=== PATIENT | female | born 1945 | race Caucasian/White ===

== ENCOUNTER 2018-10-14 07:57 | Emergency (ER) | payer MEDICARE, OTHER ==
[~2018-10-14] VITALS: Ht 170.2 cm; Wt 73.9 kg
[2018-10-14 09:27] LABS: BASOPHILS # (AUTO) 0.01 x10^3/uL (0-0.1); BASOPHILS % (AUTO) 0 % (0-1); EOSINOPHILS # (AUTO) 0.04 x10^3/uL (0-0.4); EOSINOPHILS % (AUTO) 1 % (1-7); LYMPHOCYTES # (AUTO) 0.83 x10^3/uL (1-3.4); LYMPHOCYTES % (AUTO) 10 % (22-44); MD NO; MEAN CORPUSCULAR HEMOGLOBIN 30.8 pg (27.0-34.8); MEAN CORPUSCULAR HGB CONC 32.6 g/dL (32.4-35.8); MEAN CORPUSCULAR VOLUME 94.4 fL (80-100); MEAN PLATELET VOLUME 7.8 fL (7.4-10.4); MONOCYTES # (AUTO) 0.67 x10^3/uL (0.2-0.8); MONOCYTES % (AUTO) 8 % (2-9); NEUTROPHILS # (AUTO) 6.41 x10^3/uL (1.8-6.8); NEUTROPHILS % (AUTO) 81 % (42-75); PLATELET COUNT 276 x10^3/uL (130-400); RED BLOOD COUNT 4.47 x10^6/uL (3.82-5.3); RED CELL DISTRIBUTION WIDTH 13.3 % (9.6-15.2)
[2018-10-14 09:48] LABS: ALBUMIN 3.8 g/dL (3.4-5.0); ANION GAP 6 mmol/L (5-15); CALCIUM 9.3 mg/dL (8.5-10.1); CHLORIDE 107 mmol/L (98-107); CREATININE 1.29 mg/dL (0.55-1.02)
[2018-10-14 09:51] LABS: TROPONIN I < 0.015 ng/mL (0.000-0.045)
[2018-10-14 10:46] LABS: MICROSCOPIC AUTO
[2018-10-14 10:47] LABS: CULTURE INDICATED? YES
--- NOTE | 2018-10-14 11:33 | NUR ---
PT UP TO BEDSIDE COMMODE WITH STANDBY ASSISTANCE, NO BALANCE ASSISTANCE REQUIRED. DENIES ANY NEEDS OR CONCERNS AT THIS TIME.
[2018-10-14 11:39] VITALS: BP 129/76
== END 2018-10-14 12:06 | disposition home or self-care (01) ==
LOC: ED 11:57
DX: S80.01XA Contusion of right knee, initial encounter (principal); N30.00 Acute cystitis without hematuria; I10 Essential (primary) hypertension; Z87.891 Personal history of nicotine dependence; W01.0XXA Fall on same level from slipping, tripping and stumbling without subsequent striking against object, initial encounter; Y93.89 Activity, other specified; Y92.410 Unspecified street and highway as the place of occurrence of the external cause; Y99.8 Other external cause status
CPT/HCPCS: 36415; 71045; 80048; 81001; 82040; 84484; 85025; 87077; 87086; 87186; 93005; 99284

== ENCOUNTER 2019-05-15 19:10 | Inpatient (IN) | payer MEDICARE ==
[~2019-05-15] VITALS: Ht 167.6 cm; Wt 67.5 kg
--- NOTE | 2019-05-15 19:30 | NUR ---
PT UNDRESSED, PLACED IN GOWN. SOCKS SOILED, OTHERWISE CLOTHES REASONABLY CLEAN BUT SMELLING OF SMOKE. PT CALM, COOPERATIVE WITH CARE. A/O X 4, ONLY FALTERS ON DATE STATING IT IS 02/2020. PT DENIES ANY MEDICAL COMPLAINTS. BELONGINGS PLACED IN TWO BAGS AND TO LOCKER. PT DENIES SI/HI, DOES NOT PRESENT ELOPEMENT RISK. WARM BLANKETS PROVIDED, CALL LIGHT WITHIN REACH.
[2019-05-15 19:47] LABS: BASOPHILS # (AUTO) 0.03 x10^3/uL (0-0.1); BASOPHILS % (AUTO) 1 % (0-1); EOSINOPHILS % (AUTO) 2 % (1-7); LYMPHOCYTES # (AUTO) 1.93 x10^3/uL (1-3.4); LYMPHOCYTES % (AUTO) 29 % (22-44); MD NO; MEAN CORPUSCULAR HEMOGLOBIN 31.5 pg (27.0-34.8); MEAN CORPUSCULAR HGB CONC 32.9 g/dL (32.4-35.8); MEAN CORPUSCULAR VOLUME 95.6 fL (80-100); MEAN PLATELET VOLUME 7.6 fL (7.4-10.4); MONOCYTES # (AUTO) 0.76 x10^3/uL (0.2-0.8); MONOCYTES % (AUTO) 11 % (2-9); NEUTROPHILS # (AUTO) 3.89 x10^3/uL (1.8-6.8); NEUTROPHILS % (AUTO) 58 % (42-75); PLATELET COUNT 428 x10^3/uL (130-400); RED BLOOD COUNT 3.86 x10^6/uL (3.82-5.3); RED CELL DISTRIBUTION WIDTH 13.6 % (9.6-15.2)
[2019-05-15 19:58] LABS: ALANINE AMINOTRANSFERASE 17 U/L (12-78); ALBUMIN 2.9 g/dL (3.4-5.0); ANION GAP 6 mmol/L (5-15); CALCIUM 9.2 mg/dL (8.5-10.1); CHLORIDE 112 mmol/L (98-107); CREATININE 1.06 mg/dL (0.55-1.02)
[2019-05-15 20:08] LABS: ALKALINE PHOSPHATASE 78 U/L (45-117); BILIRUBIN,TOTAL 0.2 mg/dL (0.2-1.0); TOTAL PROTEIN 6.3 g/dL (6.4-8.2)
--- NOTE | 2019-05-15 20:15 | NUR ---
PT ASSISTED UP TO BSC. URINE COLLECTED/SENT TO LAB.
[2019-05-15] MEDS ORDERED: ALBU18HF INH (20:34)
[2019-05-15] MEDS ORDERED: AMLO10TA8 PO (20:34)
[2019-05-15] MEDS ORDERED: LISI40TA PO (20:34)
[2019-05-15] MEDS ORDERED: ATOR40TA PO (20:34)
--- NOTE | 2019-05-15 20:36 | NUR ---
PT PROVIDED MEAL TRAY. MED REC COMPLETED. CALL LIGHT WITHIN REACH.
[2019-05-15 20:37] LABS: MICROSCOPIC AUTO
[2019-05-15 20:57] LABS: CULTURE INDICATED? YES
[2019-05-15 21:39] VITALS: BP 159/70
[2019-05-15] MEDS ORDERED: SODIUM CHLORIDE 0.9% 1,000 ML IV SCH (22:32)
[2019-05-15] MEDS ORDERED: hydrALAzine 20 MG/ML, 1ML IVPush PRN (23:00)
[2019-05-15] MEDS ORDERED: BISACODYL 10 MG SUPP PR PRN (23:00)
[2019-05-15] MEDS ORDERED: POLYETHYLENE GLYCOL 17 GM PACKET PO PRN (23:00)
[2019-05-15] MEDS ORDERED: ONDANSETRON ODT 4 MG PO PRN (23:00)
[2019-05-15] MEDS ORDERED: DOCUSATE 100 MG CAPSULE PO PRN (23:00)
[2019-05-15] MEDS: HEPARIN 5,000 UNITS/ML, 1ML SQ SCH (23:00)
[2019-05-15] MEDS ORDERED: ONDANSETRON 2MG/ML, 2ML IVPush PRN (23:00)
[2019-05-15] MEDS ORDERED: ACETAMINOPHEN 325 MG TABLET PO PRN (23:00)
[2019-05-15] MEDS ORDERED: PROMETHAZINE 25 MG/ML, 1ML IM PRN (23:00)
[2019-05-15] MEDS: CEFTRIAXONE PMX 2GM/50ML 50 ML IV SCH (23:12)
[2019-05-15 23:17] LABS: FREE T4 (FREE THYROXINE) 0.99 ng/dL (0.76-1.46)
[2019-05-16 00:11] VITALS: BP 157/83
[2019-05-16 02:25] VITALS: BP 159/70
[2019-05-16 06:41] LABS: BASOPHILS # (AUTO) 0.04 x10^3/uL (0-0.1); BASOPHILS % (AUTO) 1 % (0-1); EOSINOPHILS # (AUTO) 0.14 x10^3/uL (0-0.4); EOSINOPHILS % (AUTO) 2 % (1-7); LYMPHOCYTES # (AUTO) 1.94 x10^3/uL (1-3.4); LYMPHOCYTES % (AUTO) 28 % (22-44); MD NO; MEAN CORPUSCULAR HEMOGLOBIN 31.7 pg (27.0-34.8); MEAN CORPUSCULAR HGB CONC 33.1 g/dL (32.4-35.8); MEAN CORPUSCULAR VOLUME 95.7 fL (80-100); MEAN PLATELET VOLUME 7.7 fL (7.4-10.4); MONOCYTES # (AUTO) 0.75 x10^3/uL (0.2-0.8); MONOCYTES % (AUTO) 11 % (2-9); NEUTROPHILS # (AUTO) 4.18 x10^3/uL (1.8-6.8); NEUTROPHILS % (AUTO) 59 % (42-75); PLATELET COUNT 385 x10^3/uL (130-400); RED BLOOD COUNT 3.58 x10^6/uL (3.82-5.3); RED CELL DISTRIBUTION WIDTH 13.6 % (9.6-15.2)
[2019-05-16 06:55] LABS: ALBUMIN 2.5 g/dL (3.4-5.0); ANION GAP 5 mmol/L (5-15); CALCIUM 8.5 mg/dL (8.5-10.1); CHLORIDE 114 mmol/L (98-107)
[2019-05-16 06:58] LABS: ALANINE AMINOTRANSFERASE 18 U/L (12-78); ALKALINE PHOSPHATASE 60 U/L (45-117); BILIRUBIN,TOTAL 0.3 mg/dL (0.2-1.0); CHOL/HDL RATIO 2.3; CHOLESTEROL, TOTAL 134 mg/dL (140-239); CREATININE 1.04 mg/dL (0.55-1.02); HDL CHOL % 43 % (28-40); HDL CHOLESTEROL (DIRECT) 58 mg/dL (40-60); LDL CHOLESTEROL,CALCULATED 58 mg/dL (54-169); TOTAL PROTEIN 5.8 g/dL (6.4-8.2); TRIGLYCERIDES 88 mg/dL (50-200); VLDL CHOLESTEROL 18 mg/dL (0-25)
[2019-05-16] MEDS: HEPARIN 5,000 UNITS/ML, 1ML SQ SCH ×3 (07:00→22:56)
[2019-05-16 07:39] VITALS: BP 158/82
[2019-05-16 13:43] VITALS: BP 148/72
[2019-05-16 14:31] LABS: AMPHETAMINE SCREEN, URINE Negative (Negative); BARBITURATE SCREEN, URINE Negative (Negative); BENZODIAZEPINE SCREEN, URINE Negative (Negative); CANNABINOID SCREEN, URINE Negative (Negative); COCAINE SCREEN, URINE Negative (Negative); METHADONE SCREEN, URINE Negative (Negative); OPIATE SCREEN, URINE Negative (Negative)
[2019-05-16 18:52] VITALS: BP 149/78
[2019-05-16] MEDS: ATORVASTATIN 40 MG TABLET PO SCH (21:26)
[2019-05-16] MEDS: CEFTRIAXONE PMX 2GM/50ML 50 ML IV SCH (22:56)
[2019-05-17 00:06] VITALS: BP 150/82
[2019-05-17 05:05] LABS: ANION GAP 7 mmol/L (5-15); CALCIUM 8.4 mg/dL (8.5-10.1); CHLORIDE 112 mmol/L (98-107); CREATININE 1.05 mg/dL (0.55-1.02)
[2019-05-17] MEDS: HEPARIN 5,000 UNITS/ML, 1ML SQ SCH ×4 (05:06→22:24)
[2019-05-17 05:07] LABS: BASOPHILS # (AUTO) 0.04 x10^3/uL (0-0.1); BASOPHILS % (AUTO) 1 % (0-1); EOSINOPHILS # (AUTO) 0.26 x10^3/uL (0-0.4); EOSINOPHILS % (AUTO) 4 % (1-7); LYMPHOCYTES # (AUTO) 1.84 x10^3/uL (1-3.4); LYMPHOCYTES % (AUTO) 28 % (22-44); MD NO; MEAN CORPUSCULAR HEMOGLOBIN 31.6 pg (27.0-34.8); MEAN CORPUSCULAR HGB CONC 32.9 g/dL (32.4-35.8); MEAN CORPUSCULAR VOLUME 95.9 fL (80-100); MEAN PLATELET VOLUME 7.8 fL (7.4-10.4); MONOCYTES # (AUTO) 0.78 x10^3/uL (0.2-0.8); MONOCYTES % (AUTO) 12 % (2-9); NEUTROPHILS # (AUTO) 3.77 x10^3/uL (1.8-6.8); NEUTROPHILS % (AUTO) 56 % (42-75); PLATELET COUNT 374 x10^3/uL (130-400); RED BLOOD COUNT 3.66 x10^6/uL (3.82-5.3); RED CELL DISTRIBUTION WIDTH 13.4 % (9.6-15.2)
[2019-05-17] MEDS: AMLODIPINE 10 MG TAB PO SCH (07:43)
[2019-05-17 07:52] VITALS: BP 157/90
[2019-05-17] MEDS: LISINOPRIL 20 MG TABLET PO SCH (11:01)
[2019-05-17 12:51] VITALS: BP 159/90
[2019-05-17] MEDS: ATORVASTATIN 40 MG TABLET PO SCH (20:05)
[2019-05-17 20:24] VITALS: BP 154/82
[2019-05-17] MEDS: CEFTRIAXONE PMX 2GM/50ML 50 ML IV SCH (22:25)
[2019-05-18 00:54] VITALS: BP 133/78
[2019-05-18] MEDS: HEPARIN 5,000 UNITS/ML, 1ML SQ SCH ×3 (06:30→23:00)
[2019-05-18 07:54] VITALS: BP 138/87
[2019-05-18] MEDS: AMLODIPINE 10 MG TAB PO SCH (08:05)
[2019-05-18] MEDS: LISINOPRIL 20 MG TABLET PO SCH (08:05)
[2019-05-18 14:02] VITALS: BP 130/80
[2019-05-18 19:46] VITALS: BP 132/75
[2019-05-18] MEDS: ATORVASTATIN 40 MG TABLET PO SCH (20:53)
[2019-05-18] MEDS: CEFTRIAXONE PMX 2GM/50ML 50 ML IV SCH (23:00)
[2019-05-19 00:27] VITALS: BP 135/63
[2019-05-19 07:13] VITALS: BP 138/81
[2019-05-19] MEDS: HEPARIN 5,000 UNITS/ML, 1ML SQ SCH ×3 (08:36→22:40)
[2019-05-19] MEDS: AMLODIPINE 10 MG TAB PO SCH (08:36)
[2019-05-19] MEDS: LISINOPRIL 20 MG TABLET PO SCH (08:37)
[2019-05-19 13:17] VITALS: BP 131/77
[2019-05-19] MEDS: ATORVASTATIN 40 MG TABLET PO SCH (20:22)
[2019-05-19] MEDS: CEFTRIAXONE PMX 2GM/50ML 50 ML IV SCH ×2 (22:39→23:25)
[2019-05-20 01:26] VITALS: BP 148/79
[2019-05-20 06:59] VITALS: BP 144/81
[2019-05-20] MEDS: AMLODIPINE 10 MG TAB PO SCH (07:50)
[2019-05-20] MEDS: HEPARIN 5,000 UNITS/ML, 1ML SQ SCH ×3 (07:51→23:27)
[2019-05-20] MEDS: LISINOPRIL 20 MG TABLET PO SCH (07:51)
[2019-05-20 12:57] VITALS: BP 145/78
[2019-05-20] MEDS: ATORVASTATIN 40 MG TABLET PO SCH (19:58)
[2019-05-20 20:17] VITALS: BP 142/84
[2019-05-21 00:13] VITALS: BP 114/72
[2019-05-21 07:12] VITALS: BP 130/77
[2019-05-21] MEDS: HEPARIN 5,000 UNITS/ML, 1ML SQ SCH ×2 (10:22→17:00)
[2019-05-21] MEDS: AMLODIPINE 10 MG TAB PO SCH (10:22)
[2019-05-21] MEDS: LISINOPRIL 20 MG TABLET PO SCH (10:22)
[2019-05-21 14:30] VITALS: BP 127/86
[2019-05-21 19:19] VITALS: BP 127/80
[2019-05-21] MEDS: ATORVASTATIN 40 MG TABLET PO SCH (19:52)
[2019-05-22] MEDS: HEPARIN 5,000 UNITS/ML, 1ML SQ SCH ×3 (01:00→16:27)
[2019-05-22 01:04] VITALS: BP 127/80
[2019-05-22] MEDS: LISINOPRIL 20 MG TABLET PO SCH (08:30)
[2019-05-22] MEDS: AMLODIPINE 10 MG TAB PO SCH (08:30)
[2019-05-22 09:55] VITALS: BP 106/69
[2019-05-22 15:51] VITALS: BP 109/73
[2019-05-22 18:45] VITALS: BP 111/70
[2019-05-22] MEDS: ATORVASTATIN 40 MG TABLET PO SCH (20:16)
[2019-05-23] MEDS: HEPARIN 5,000 UNITS/ML, 1ML SQ SCH ×3 (01:00→17:21)
[2019-05-23 01:32] VITALS: BP 121/74
[2019-05-23 07:24] VITALS: BP 126/74
[2019-05-23] MEDS: AMLODIPINE 10 MG TAB PO SCH (09:50)
[2019-05-23] MEDS: LISINOPRIL 20 MG TABLET PO SCH (09:51)
[2019-05-23 12:20] VITALS: BP 116/74
[2019-05-23 18:28] VITALS: BP 109/68
[2019-05-23] MEDS: ATORVASTATIN 40 MG TABLET PO SCH (20:03)
[2019-05-23 20:21] VITALS: BP 113/73
[2019-05-24 00:28] VITALS: BP 121/77
[2019-05-24] MEDS: HEPARIN 5,000 UNITS/ML, 1ML SQ SCH ×3 (00:32→17:31)
[2019-05-24 07:07] VITALS: BP 109/72
[2019-05-24 08:58] VITALS: BP 121/74
[2019-05-24] MEDS: AMLODIPINE 10 MG TAB PO SCH (08:58)
[2019-05-24] MEDS: LISINOPRIL 20 MG TABLET PO SCH (08:58)
[2019-05-24 13:44] VITALS: BP 125/65
[2019-05-24 20:00] VITALS: BP 123/71
[2019-05-24] MEDS: ATORVASTATIN 40 MG TABLET PO SCH (20:56)
[2019-05-25] MEDS: HEPARIN 5,000 UNITS/ML, 1ML SQ SCH ×3 (01:00→17:00)
[2019-05-25 01:02] VITALS: BP 112/74
[2019-05-25 07:08] VITALS: BP 113/73
[2019-05-25] MEDS: AMLODIPINE 10 MG TAB PO SCH (07:30)
[2019-05-25] MEDS: LISINOPRIL 20 MG TABLET PO SCH (07:30)
[2019-05-25 15:23] VITALS: BP 117/72
[2019-05-25 19:49] VITALS: BP 110/71
[2019-05-25] MEDS: ATORVASTATIN 40 MG TABLET PO SCH (20:27)
[2019-05-26] MEDS: HEPARIN 5,000 UNITS/ML, 1ML SQ SCH ×3 (00:32→17:00)
[2019-05-26 01:55] VITALS: BP 107/68
[2019-05-26 07:12] VITALS: BP 120/74
[2019-05-26] MEDS: AMLODIPINE 10 MG TAB PO SCH (09:40)
[2019-05-26] MEDS: LISINOPRIL 20 MG TABLET PO SCH (09:41)
[2019-05-26 12:45] VITALS: BP 130/80
[2019-05-26 19:03] VITALS: BP 112/71
[2019-05-26] MEDS: ATORVASTATIN 40 MG TABLET PO SCH (20:14)
[2019-05-27] MEDS: HEPARIN 5,000 UNITS/ML, 1ML SQ SCH ×3 (00:35→15:42)
[2019-05-27 00:40] VITALS: BP 98/58
[2019-05-27 07:01] VITALS: BP 103/64
[2019-05-27] MEDS: AMLODIPINE 10 MG TAB PO SCH (08:32)
[2019-05-27] MEDS: LISINOPRIL 20 MG TABLET PO SCH (08:33)
[2019-05-27 14:16] VITALS: BP 107/69
[2019-05-27 19:00] VITALS: BP 125/73
[2019-05-27] MEDS: ATORVASTATIN 40 MG TABLET PO SCH (19:56)
[2019-05-28] MEDS: HEPARIN 5,000 UNITS/ML, 1ML SQ SCH ×3 (01:00→17:00)
[2019-05-28 03:53] VITALS: BP 118/74
[2019-05-28 07:49] VITALS: BP 115/73
[2019-05-28] MEDS: AMLODIPINE 10 MG TAB PO SCH (09:38)
[2019-05-28] MEDS: LISINOPRIL 20 MG TABLET PO SCH (09:39)
[2019-05-28 14:27] VITALS: BP 113/74
[2019-05-28 20:31] VITALS: BP 115/66
[2019-05-28] MEDS: ATORVASTATIN 40 MG TABLET PO SCH (22:11)
[2019-05-29] MEDS: HEPARIN 5,000 UNITS/ML, 1ML SQ SCH ×3 (01:46→17:39)
[2019-05-29 02:00] VITALS: BP 117/76
[2019-05-29 08:35] VITALS: BP 110/72
[2019-05-29] MEDS: LISINOPRIL 20 MG TABLET PO SCH (08:58)
[2019-05-29] MEDS: AMLODIPINE 10 MG TAB PO SCH (08:58)
[2019-05-29 12:49] VITALS: BP 122/80
[2019-05-29] MEDS: ATORVASTATIN 40 MG TABLET PO SCH (19:24)
[2019-05-29 20:55] VITALS: BP 116/75
[2019-05-30 00:11] VITALS: BP 112/73
[2019-05-30] MEDS: HEPARIN 5,000 UNITS/ML, 1ML SQ SCH ×3 (00:45→18:39)
[2019-05-30 06:46] VITALS: BP 114/73
[2019-05-30] MEDS: LISINOPRIL 20 MG TABLET PO SCH (10:50)
[2019-05-30] MEDS: AMLODIPINE 10 MG TAB PO SCH (10:51)
[2019-05-30 14:47] VITALS: BP 112/73
[2019-05-30 18:51] VITALS: BP 119/78
[2019-05-30] MEDS: ATORVASTATIN 40 MG TABLET PO SCH (20:14)
[2019-05-31 00:59] VITALS: BP 102/65
[2019-05-31] MEDS: HEPARIN 5,000 UNITS/ML, 1ML SQ SCH ×3 (01:00→17:36)
[2019-05-31 08:39] VITALS: BP 110/68
[2019-05-31] MEDS: AMLODIPINE 10 MG TAB PO SCH (10:45)
[2019-05-31] MEDS: LISINOPRIL 20 MG TABLET PO SCH (10:45)
[2019-05-31 14:04] VITALS: BP 114/73
[2019-05-31 20:00] VITALS: BP 135/80
[2019-05-31] MEDS: ATORVASTATIN 40 MG TABLET PO SCH (20:05)
[2019-06-01] MEDS: HEPARIN 5,000 UNITS/ML, 1ML SQ SCH ×2 (01:00→09:29)
[2019-06-01 01:54] VITALS: BP 118/75
[2019-06-01 07:30] VITALS: BP 105/70
[2019-06-01] MEDS: LISINOPRIL 20 MG TABLET PO SCH (09:29)
[2019-06-01] MEDS: AMLODIPINE 10 MG TAB PO SCH (09:29)
[2019-06-01] MEDS ORDERED: ENOXAPARIN 40 MG/0.4 ML SQ SCH (10:00)
[2019-06-01 14:20] VITALS: BP 106/69
[2019-06-01] MEDS: ENOXAPARIN 40 MG/0.4 ML SQ SCH (17:49)
[2019-06-01 19:00] VITALS: BP 113/71
[2019-06-01] MEDS: ATORVASTATIN 40 MG TABLET PO SCH (20:24)
[2019-06-02 00:17] VITALS: BP 111/70
[2019-06-02 07:15] VITALS: BP 119/75
[2019-06-02] MEDS: AMLODIPINE 10 MG TAB PO SCH (08:38)
[2019-06-02] MEDS: LISINOPRIL 20 MG TABLET PO SCH (08:38)
[2019-06-02 13:28] VITALS: BP 97/63
[2019-06-02] MEDS: ENOXAPARIN 40 MG/0.4 ML SQ SCH (18:00)
[2019-06-02 19:30] VITALS: BP 111/70
[2019-06-02] MEDS: ATORVASTATIN 40 MG TABLET PO SCH (21:07)
[2019-06-03 01:34] VITALS: BP 103/66
[2019-06-03 07:33] VITALS: BP 108/73
[2019-06-03] MEDS: AMLODIPINE 10 MG TAB PO SCH (08:03)
[2019-06-03] MEDS: LISINOPRIL 20 MG TABLET PO SCH (08:03)
[2019-06-03 13:13] VITALS: BP 95/63
[2019-06-03] MEDS: ENOXAPARIN 40 MG/0.4 ML SQ SCH (18:14)
[2019-06-03] MEDS: ATORVASTATIN 40 MG TABLET PO SCH (19:20)
[2019-06-03 20:23] VITALS: BP 93/60
[2019-06-04 00:46] VITALS: BP 108/70
[2019-06-04 08:39] VITALS: BP 101/68
[2019-06-04] MEDS: LISINOPRIL 20 MG TABLET PO SCH (09:04)
[2019-06-04 12:15] VITALS: BP 107/72
[2019-06-04 20:19] VITALS: BP 112/71
[2019-06-04] MEDS: ATORVASTATIN 40 MG TABLET PO SCH (21:24)
[2019-06-04] MEDS: ENOXAPARIN 40 MG/0.4 ML SQ SCH (21:25)
[2019-06-05 00:32] VITALS: BP 99/64
[2019-06-05 05:59] LABS: ANION GAP 5 mmol/L (5-15); CALCIUM 9.2 mg/dL (8.5-10.1); CHLORIDE 110 mmol/L (98-107); CREATININE 1.08 mg/dL (0.55-1.02)
[2019-06-05 06:01] LABS: BASOPHILS # (AUTO) 0.04 x10^3/uL (0-0.1); BASOPHILS % (AUTO) 1 % (0-1); EOSINOPHILS # (AUTO) 0.49 x10^3/uL (0-0.4); EOSINOPHILS % (AUTO) 8 % (1-7); LYMPHOCYTES # (AUTO) 1.95 x10^3/uL (1-3.4); LYMPHOCYTES % (AUTO) 31 % (22-44); MD NO; MEAN CORPUSCULAR HEMOGLOBIN 31.6 pg (27.0-34.8); MEAN CORPUSCULAR HGB CONC 32.7 g/dL (32.4-35.8); MEAN CORPUSCULAR VOLUME 96.6 fL (80-100); MEAN PLATELET VOLUME 8.4 fL (7.4-10.4); MONOCYTES # (AUTO) 0.71 x10^3/uL (0.2-0.8); MONOCYTES % (AUTO) 11 % (2-9); NEUTROPHILS # (AUTO) 3.08 x10^3/uL (1.8-6.8); NEUTROPHILS % (AUTO) 49 % (42-75); PLATELET COUNT 330 x10^3/uL (130-400); RED BLOOD COUNT 4.22 x10^6/uL (3.82-5.3); RED CELL DISTRIBUTION WIDTH 14.4 % (9.6-15.2)
[2019-06-05 08:12] VITALS: BP 112/78
[2019-06-05] MEDS: LISINOPRIL 20 MG TABLET PO SCH (09:00)
[2019-06-05 14:35] VITALS: BP 98/65
[2019-06-05 19:36] VITALS: BP 106/68
[2019-06-05] MEDS: ATORVASTATIN 40 MG TABLET PO SCH (21:06)
[2019-06-05] MEDS: ENOXAPARIN 40 MG/0.4 ML SQ SCH (21:06)
[2019-06-06 02:45] VITALS: BP 113/77
[2019-06-06 07:22] VITALS: BP 108/73
[2019-06-06] MEDS: LISINOPRIL 20 MG TABLET PO SCH (08:05)
[2019-06-06 12:07] VITALS: BP 107/74
[2019-06-06] MEDS: ATORVASTATIN 40 MG TABLET PO SCH (20:24)
[2019-06-06] MEDS: ENOXAPARIN 40 MG/0.4 ML SQ SCH (20:24)
[2019-06-06 21:00] VITALS: BP 130/79
[2019-06-07 02:00] VITALS: BP 106/66
[2019-06-07 06:55] VITALS: BP 112/71
[2019-06-07] MEDS: LISINOPRIL 20 MG TABLET PO SCH (09:22)
[2019-06-07 13:21] VITALS: BP 115/75
[2019-06-07 18:47] VITALS: BP 107/66
[2019-06-07] MEDS: ATORVASTATIN 40 MG TABLET PO SCH (20:11)
[2019-06-07] MEDS: ENOXAPARIN 40 MG/0.4 ML SQ SCH (20:11)
[2019-06-07 23:59] VITALS: BP 97/64
[2019-06-08 03:30] VITALS: BP 103/64
[2019-06-08 06:37] VITALS: BP 100/66
[2019-06-08] MEDS: LISINOPRIL 20 MG TABLET PO SCH (09:15)
[2019-06-08 14:18] VITALS: BP 117/77
[2019-06-08] MEDS: ENOXAPARIN 40 MG/0.4 ML SQ SCH (20:05)
[2019-06-08] MEDS: ATORVASTATIN 40 MG TABLET PO SCH (20:05)
[2019-06-08 20:25] VITALS: BP 111/72
[2019-06-09 01:19] VITALS: BP 99/66
[2019-06-09 05:55] LABS: CREATININE 1.03 mg/dL (0.55-1.02)
[2019-06-09 06:48] VITALS: BP 115/76
[2019-06-09] MEDS: LISINOPRIL 20 MG TABLET PO SCH (08:20)
[2019-06-09 13:24] VITALS: BP 115/80
[2019-06-09 20:18] VITALS: BP 104/68
[2019-06-09] MEDS: ATORVASTATIN 40 MG TABLET PO SCH (20:47)
[2019-06-09] MEDS: ENOXAPARIN 40 MG/0.4 ML SQ SCH (20:48)
[2019-06-10 01:53] VITALS: BP 112/72
[2019-06-10 08:15] VITALS: BP 108/73
[2019-06-10] MEDS: LISINOPRIL 20 MG TABLET PO SCH (08:46)
[2019-06-10 13:29] VITALS: BP 105/70
[2019-06-10 19:26] VITALS: BP 107/69
[2019-06-10] MEDS: ATORVASTATIN 40 MG TABLET PO SCH (20:32)
[2019-06-10] MEDS: ENOXAPARIN 40 MG/0.4 ML SQ SCH (20:33)
[2019-06-11 00:27] VITALS: BP 108/73
[2019-06-11 07:23] VITALS: BP 110/74
[2019-06-11] MEDS: LISINOPRIL 20 MG TABLET PO SCH (08:59)
[2019-06-11 13:57] VITALS: BP 102/68
[2019-06-11 19:14] VITALS: BP 102/70
[2019-06-11] MEDS: ENOXAPARIN 40 MG/0.4 ML SQ SCH (20:30)
[2019-06-11] MEDS: ATORVASTATIN 40 MG TABLET PO SCH (20:30)
[2019-06-12 00:57] VITALS: BP 104/69
[2019-06-12 06:47] VITALS: BP 99/66
[2019-06-12] MEDS: LISINOPRIL 20 MG TABLET PO SCH (09:00)
[2019-06-12] MEDS ORDERED: ATOR40TA78 PO (11:20)
[2019-06-12] MEDS ORDERED: LISI-170 PO (11:20)
== END 2019-06-12 14:04 | disposition home health service (06) | DRG 640 ==
LOC: ED 20:45 → EDIP 21:13 → 3N 21:25
PROVIDERS: ADMIT Internal Medicine; ATTEND Family Medicine
DX: E86.0 Dehydration (principal); G93.41 Metabolic encephalopathy; N39.0 Urinary tract infection, site not specified; T76.91XA Unspecified adult maltreatment, suspected, initial encounter; R62.7 Adult failure to thrive; E78.5 Hyperlipidemia, unspecified; I10 Essential (primary) hypertension; J45.909 Unspecified asthma, uncomplicated; B96.20 Unspecified Escherichia coli [E. coli] as the cause of diseases classified elsewhere; B95.1 Streptococcus, group B, as the cause of diseases classified elsewhere; Z79.899 Other long term (current) drug therapy; Z87.891 Personal history of nicotine dependence; Z59.0 Homelessness; Z86.73 Personal history of transient ischemic attack (TIA), and cerebral infarction without residual deficits; Z91.14 Patient's other noncompliance with medication regimen
CPT/HCPCS: 36415; 71045; 80048; 80053; 80061; 80307; 81001; 82565; 83036; 83735; 84439; 84443; 85025; 86480; 87077; 87086; 87186; 93005; 99285; G0378; J0696; J1644; J1650; J7030